=== PATIENT | female | born 1985 | race Caucasian/White ===

== ENCOUNTER 2016-09-20 06:40 | Day surgery (SDC) | payer MEDICAID ==
[~2016-09-20 06:40] MED LIST: Lactated Ringers 1,000 ML IV SCH
--- NOTE | 2016-09-20 07:24 | PCM.PREANE ---
Preanesthetic Assessment - Anesthesia/Transfusion/Family Hx Anesthesia History: Prior Anesthesia Without Reaction Family History of Anesthesia Reaction: No Transfusion History: No Prior Transfusion(s) Intubation History: Unknown - Review of Systems General: Other (c/o sore throat x 2 days) Pulmonary: No Symptoms Cardiovascular: No Symptoms Gastrointestinal: No symptoms Neurological: No Symptoms Other: Reports: None - Physical Assessment O2 Sat by Pulse Oximetry: 98 Respiratory Rate: 72 Vital Signs: Last Vital Signs Temp 99.2 F 09/20/16 07:11 Pulse 72 09/20/16 07:11 Resp 72 H 09/20/16 07:11 BP 138/80 09/20/16 07:11 Pulse Ox 98 09/20/16 07:11 Height: 5 ft 4 in Weight: 160 lb ASA Class: 1 Mental Status: Alert & Oriented x3 Airway Class: Mallampati = 1 Dentition: Reports: Normal Dentition Thyro-Mental Finger Breadths: 3 Mouth Opening Finger Breadths: 3 ROM/Head Extension: Full Lungs: Clear to auscultation, Normal respiratory effort Cardiovascular: Regular Rate, Regular Rhythm, No Murmurs - Allergies Allergies/Adverse Reactions: Allergies Allergy/AdvReac Type Severity Reaction Status Date / Time No Known Allergies Allergy Verified 02/10/14 15:37 - Blood Blood Available: No Product(s) Available: None - Anesthesia Plan Pre-Op Medication Ordered: None - Acknowledgements Anesthesia Type Planned: General Anesthesia, MAC (mask vs LMA general; TBD) Pt an Appropriate Candidate for the Planned Anesthesia: Yes Alternatives and Risks of Anesthesia Discussed w Pt/Guardian: Yes Pt/Guardian Understands and Agrees with Anesthesia Plan: Yes PreAnesthesia Questionnaire - Past Health History Medical/Surgical History: Denies 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: Neurological History: Reports: Concussion Psychiatric History: Reports: Anxiety - Past Surgical History Head Surgeries/Procedures: Reports: None HEENT Surgical History: Reports: Oral surgery Female Surgical History: Reports: Breast biopsy Other Female Surgeries/Procedures: breast fibroadenoma removal x3 - SUBSTANCE USE Smoking Status *Q: Never Smoker Second Hand Smoke Exposure: No Days Per Week of Alcohol Use: 3 Number of Drinks Per Day: 5 Total Drinks Per Week: 15 Recreational Drug Use History: Yes Recreational Drug Type: Reports: Marijuana/Hashish - HOME MEDS Home Medications: Home Meds Ibuprofen 1 tab PO ASDIRECTED PRN 04/06/17 [History] Levonorgestrel [Mirena] 1 device VAG ASDIRECTED 09/15/16 [History] PNV95/Ferrous Fumarate/FA [ Vitamins Tablet] 1 tab PO DAILY 09/15/16 [ History] - CURRENT (IN HOUSE) MEDS Current Meds: Current Medications Lactated Ringer's (Ringers, Lactated) 1,000 mls @ 125 mls/hr IV ASDIRECTED [facility] [place] Preanesthetic Assessment - ANESTHESIA/TRANSFUSION/FAMILY HX Anesthesia/Transfusion History: Prior Anesthesia Family History of Anesthesia Reaction: No - PHYSICAL ASSESSMENT O2 Sat by Pulse Oximetry: 98 RR: 72 Vital Signs: Last Vital Signs Temp 99.2 F 09/20/16 07:11 Pulse 72 09/20/16 07:11 Resp 72 H 09/20/16 07:11 BP 138/80 09/20/16 07:11 Pulse Ox 98 09/20/16 07:11 Height: 5 ft 4 in Weight: 160 lb - ALLERGIES Allergies/Adverse Reactions: Allergies Allergy/AdvReac Type Severity Reaction Status Date / Time No Known Allergies Allergy Verified 02/10/14 15:37
[2016-09-20] MEDS ORDERED: Lidocaine 2% 5 ML SDV ONE (07:30)
[2016-09-20] MEDS ORDERED: Propofol 200 MG/20 ML SDV ONE ×2 (07:30→10:47)
[2016-09-20] MEDS ORDERED: fentaNYL 100 MCG/2 ML SDV ONE (07:31)
[2016-09-20] MEDS ORDERED: Midazolam 1 MG/ML 2 ML SDV ONE (07:31)
[2016-09-20] MEDS ORDERED: Lidocaine 1% with EPINEPHrine 1:100,000 20 ML MDV ONE (07:34)
[2016-09-20] MEDS ORDERED: fentaNYL 100 MCG/2 ML SDV IVPUSH PRN (09:36)
[2016-09-20] MEDS ORDERED: Ketorolac 30 MG/ML SDV ONE (10:58)
[2016-09-20] MEDS ORDERED: Ondansetron 4 MG/2 ML SDV ONE (10:58)
--- NOTE | 2016-09-20 11:14 | PCM.OPNOTE ---
- General Post-Op/Procedure Note Date of Surgery/Procedure: 09/20/16 Operative Procedure(s): Loop Electrosurgical Excision Procedure Findings: IUD string visualized. Anteverted mobile uterus, no paracervical nodularity no adnexal masses Pre Op Diagnosis: Moderate dysplasia( VERONIQUE 2) Post-Op Diagnosis: Same Anesthesia Technique: MAC Primary Surgeon: Vivien Gerardo Pathology: LEEP specimen, tagged at 12 0'clock Fluid Replacement, Intraop: 1,500 EBL in mLs: 15 Complications: None Condition: Good
--- NOTE | 2016-09-20 11:25 | PCM.POSTAN ---
POST ANESTHESIA ASSESSMENT - MENTAL STATUS Mental Status: alert, oriented - RESPIRATORY Respiratory Status: respiratory rate WNL, airway patent - CARDIOVASCULAR CV Status: pulse rate WNL, blood pressure stable - GASTROINTESTINAL GI Status: no symptoms - POST OP HYDRATION Hydration Status: adequate & stable
--- NOTE | 2016-09-20 11:26 | PCM48HPAN ---
Post Anesthesia Note - EVALUATION WITHIN 48HRS OF ANESTHETIC Vital Signs in Normal Range: Yes Patient Participated in Evaluation: Yes Respiratory Function Stable: Yes Airway Patent: Yes Cardiovascular Function Stable: Yes Hydration Status Stable: Yes Pain Control Satisfactory: Yes Nausea and Vomiting Control Satisfactory: Yes Mental Status Recovered: Yes
[2016-09-20 11:46] VITALS: BP 134/78
--- NOTE | 2016-09-21 00:49 | OR ---
SURGEON: iVvien Gerardo MD DATE OF PROCEDURE: 09/20/2016 PREOPERATIVE DIAGNOSIS: Moderate cervical dysplasia (VERONIQUE-II.) POSTOPERATIVE DIAGNOSIS: Moderate cervical dysplasia (VERONIQUE-II.) PROCEDURE: Cervical loop electrosurgical excision procedure (LEEP.) ANESTHESIA: MAC. ESTIMATED BLOOD LOSS: 15 mL. COMPLICATIONS: None. DISPOSITION: Stable to recovery room. BRIEF HISTORY: Parrish is a 30-year-old patient, who had abnormal Pap smear, low-grade squamous epithelial lesion, LGSIL. She subsequently had colposcopy directed biopsies,results of which were consistent with moderate cervical dysplasia.This findings including management options were discussed with her. The patient accepted to go ahead with operative procedure in form of a loop electrosurgical excision procedure. The risk of the procedure were explained to her including but not limited to bleeding, infection, inability to excise the lesion completely which may lead to further surgical procedures, injury to adjacent structures during the procedure. She was also counseled regarding the long-term possible risk of premature rupture of membrane/ delivery due to shortened cervix/cervical insufficiency and also possibility of cervical stenosis leading to hematocolpos, with understanding these risks, she accepted to proceed with the surgery. Appropriate consent was obtained. PROCEDURE DESCRIPTION: The patient was taken to the operating room. After adequate level of MAC anesthesia, she was placed in dorsal lithotomy position and prepped and draped in the usual fashion for vaginal surgery. Examination under anesthesia revealed an anteverted uterus approximately six week size. No palpable adnexal masses. No paracervical nodularity were palpable. A speculum was then placed into the vagina with good visualization of the cervix achieved. The vagina was cleaned out with normal saline. Paracervical block was performed with 1% lidocaine with epinephrine of 1:100,000 dilution. Thereafter, using the standard technique, a LEEP procedure was performed utilizing a loop size of 15 x 15 mm. The LEEP specimen was removed in whole circumferentially and tagged at 12 o'clock position and it was sent to pathology. Hemostasis was achieved with electrocautery using the ball. The instruments was removed from the vagina. Instrument and sponge counts were correct at the end of the procedure. The patient was taken to the recovery room in stable condition. EDUARDO / DUSTY /[id number] LUIS MANUEL
== END 2016-09-20 12:00 | disposition home or self-care (01) ==
LOC: MW.SDS 06:40
PROVIDERS: ATTEND Obstetrics & Gynecology
PROC: 0UBC7ZZ Excision of Cervix, Via Natural or Artificial Opening (ICD-10-PCS; principal; 2016-09-20)
DX: D06.9 Carcinoma in situ of cervix, unspecified (principal); Z79.899 Other long term (current) drug therapy; Z98.890 Other specified postprocedural states
CPT/HCPCS: 36415; 57522; 84703; 85027; 88307; J1885; J2250; J2405; J3010; J7120; 00940; J2704

== ENCOUNTER 2025-04-14 20:11 | Emergency (ER) | payer BC ==
[2025-04-14 20:46] VITALS: BP 148/72
[2025-04-14 21:16] VITALS: PULSE 72
== END 2025-04-14 21:16 | disposition home or self-care (01) ==
LOC: MW.ED 20:11
DX: R22.32 Localized swelling, mass and lump, left upper limb (principal)
CPT/HCPCS: 99283

== ENCOUNTER 2025-04-21 08:46 | Day surgery (SDC) | payer BC ==
[~2025-04-21 08:46] MED LIST changes: +Albuterol 0.083% 2.5 MG/3 ML Neb Soln NEB PRN; -Lactated Ringers 1,000 ML IV SCH; +Naloxone 0.4 MG/ML SDV IVPUSH PRN; +Ondansetron 4 MG/2 ML SDV IVPUSH PRN; +fentaNYL 50 MCG/ML SDV IVPUSH PRN
[2025-04-21] MEDS: Lactated Ringers 1,000 ML IV SCH (09:12)
[2025-04-21 09:15] LABS: MEAN PLATELET VOLUME 9.8 fL (9.4-12.3); NRBC ABSOLUTE 0.00 K/uL (0.00-0.02); NRBC PERCENT 0.0 /100WBC (0.0-0.2); PLATELET COUNT,PLT 243 K/uL (150-400); RED BLOOD CELL COUNT 4.37 M/uL (4.10-5.30); WHITE BLOOD CELL COUNT,WBC 5.09 K/uL (3.9-11.3)
[2025-04-21] MEDS ORDERED: Propofol 200 MG/20 ML SDV ONE (10:26)
[2025-04-21] MEDS ORDERED: Midazolam 1 MG/ML 2 ML SDV ONE (10:26)
[2025-04-21] MEDS ORDERED: fentaNYL 100 MCG/2 ML SDV ONE ×2 (10:26→10:57)
[2025-04-21] MEDS ORDERED: Sodium Chloride 0.9% 2.5 ML Syringe FLUSH PRN (10:31)
[2025-04-21] MEDS ORDERED: Sodium Chloride 0.9% 10 ML Syringe FLUSH PRN (10:31)
[2025-04-21] MEDS ORDERED: Ondansetron 4 MG/2 ML SDV ONE (10:54)
[2025-04-21] MEDS ORDERED: Dexamethasone 4 MG/ML 5 ML MDV ONE (10:54)
[2025-04-21] MEDS ORDERED: Ketorolac 30 MG/ML SDV ONE (11:03)
[2025-04-21 12:00] VITALS: BP 128/67; PULSE 51
== END 2025-04-21 11:20 | disposition home or self-care (01) ==
LOC: MW.SDS 08:46
PROVIDERS: ATTEND Obstetrics & Gynecology
DX: O02.1 Missed abortion (principal)
CPT/HCPCS: 36415; 59820; 85027; J1100; J1885; J2003; J2250; J2405; J2704; J3010; J7120; J7999; 01965; J2371